=== PATIENT | female | born 1970 | race African-American/Black ===

== ENCOUNTER 2016-11-23 13:59 | Emergency (ER) | payer OTHER ==
[2016-11-23 14:21] VITALS: TEMP 98.2; BMI 53.2
--- NOTE | 2016-11-23 15:13 | PDOC ---
History of Present Illness - General History Source: Patient Exam Limitations: No Limitations - History of Present Illness Initial Comments: 11/23/16 15:29 Patient is a 46 year old female with no significant past medical history who presents to the ED with headaches beginning 2 days ago. Patient reports headache beginning thursday afternoon while on the train en route to her home suddenly. She reports head pain subsided thursday night but returned with the same intensity thursday afternoon. She reports taking Advil pm for pain with minimal relief. She states intermittent episodes of chest pains secondary to headache. Denies SOB, dizziness. Denies nausea, urinary problems. Denies fever, chills. Denies any other symptoms. Allergies: Seasonal allergies Social history: No smoking. No alcohol. No drugs Surgical history: None PMD: Dr. Karlene Gamboa <Ellis Ramos - Last Filed: 11/23/16 15:29> <Chandrakant Delacruz - Last Filed: 11/23/16 18:44> - General Chief Complaint: Blood Pressure Problem Stated Complaint: BLOOD PRESSURE PROBLEM/chest pain Time Seen by Provider: 11/23/16 15:12 Past History <Ellis Ramos - Last Filed: 11/23/16 15:29> - Past Medical History Anemia: No Asthma: No Cancer: No Cardiac Disorders: No CVA: No COPD: No CHF: No Dementia: No Diabetes: Yes GI Disorders: No Disorders: No HTN: Yes Hypercholesterolemia: Yes Liver Disease: No Seizures: No Thyroid Disease: No - Surgical History Orthopedic Surgery: No - Immunization History Immunization Up to Date: Yes - Psycho/Social/Smoking Cessation Hx Anxiety: No Suicidal Ideation: No Smoking History: Never smoked Have you smoked in the past 12 months: No Information on smoking cessation initiated: No Hx Alcohol Use: No Drug/Substance Use Hx: No Substance Use Type: Alcohol Hx Substance Use Treatment: No <Chandrakant Delacruz - Last Filed: 11/23/16 18:44> - Past Medical History Allergies/Adverse Reactions: Allergies Allergy/AdvReac Type Severity Reaction Status Date / Time No Known Drug Allergies Allergy Verified 11/23/16 14:17 Home Medications: Ambulatory Orders Metformin HCl [Glucophage -] 500 mg PO BID 01/09/15 Ramipril [Altace] 5 mg PO DAILY 01/09/15 Atorvastatin Ca [Lipitor] 10 mg PO DAILY 08/19/15 Olmesartan/Hydrochlorothiazide [Benicar Hct 40-12.5 mg Tablet] 1 each PO DAILY 08/19/15 Review of Systems - Review of Systems Able to Perform ROS?: Yes Comments:: 11/23/16 15:29 GENERAL/CONSTITUTIONAL: No fever or chills. No weakness. HEAD, EYES, EARS, NOSE AND THROAT: No change in vision. No ear pain or discharge. No sore throat. CARDIOVASCULAR: +Chest pain. No shortness of breath. RESPIRATORY: No cough, wheezing, or hemoptysis. GASTROINTESTINAL: No nausea, vomiting, diarrhea or constipation. GENITOURINARY: No dysuria, frequency, or change in urination. MUSCULOSKELETAL: No joint or muscle swelling or pain. No neck or back pain. SKIN: No rash NEUROLOGIC: +Headache No vertigo, loss of consciousness, or change in strength/sensation. ENDOCRINE: No increased thirst. No abnormal weight change. HEMATOLOGIC/LYMPHATIC: No anemia, easy bleeding, or history of blood clots. ALLERGIC/IMMUNOLOGIC: No hives or skin allergy. All Other Systems: Reviewed and Negative <Ellis Ramos - Last Filed: 11/23/16 15:29> *Physical Exam - Vital Signs Last Vital Signs Temp Pulse Resp BP Pulse Ox 98.2 F 74 18 140/69 100 11/23/16 14:19 11/23/16 14:19 11/23/16 14:19 11/23/16 14:19 11/23/16 14:19 - Physical Exam Comments: 11/23/16 15:30 GENERAL: Awake, alert, and fully oriented, in no acute distress HEAD:No signs of trauma EYES: PERRLA, EOMI, sclera anicteric, conjunctiva clear ENT: + Front and maxillary sinus tenderness Auricles normal inspection, hearing grossly normal, nares patent, oropharynx clear without exudates. Moist mucosa NECK: Normal ROM, supple, no lymphadenopathy, JVD, or masses LUNGS: Breath sounds equal, clear to auscultation bilaterally. No wheezes, and no crackles HEART: Regular rate and rhythm, normal S1 and S2, no murmurs, rubs or gallops ABDOMEN: Soft, nontender, normoactive bowel sounds. No guarding, no rebound. No masses EXTREMITIES: Normal range of motion, no edema. No clubbing or cyanosis. No cords, erythema, or tenderness NEUROLOGICAL: Cranial nerves II through XII grossly intact. Normal speech, normal gait SKIN: Warm, Dry, normal turgor, no rashes or lesions noted. <Ellis Ramos - Last Filed: 11/23/16 15:29> - Vital Signs Last Vital Signs Temp Pulse Resp BP Pulse Ox 98.2 F 74 18 140/69 100 11/23/16 14:19 11/23/16 14:19 11/23/16 14:19 11/23/16 14:19 11/23/16 14:19 <Chandrakant Delacruz - Last Filed: 11/23/16 18:44> ED Treatment Course - LABORATORY CBC & Chemistry Diagram: 11/23/16 16:00 11/23/16 16:00 <Chandrakant Delacruz - Last Filed: 11/23/16 18:44> *DC/Admit/Observation/Transfer - Attestations Scribe Attestion: 11/23/16 15:31 Documentation prepared by Ellis Ramos, acting as medical lab specialist for Chandrakant Delacruz MD/DO. <Ellis Ramos - Last Filed: 11/23/16 15:29> - Discharge Dispostion Admit: No - Attestations Physician Attestion: 11/23/16 15:13 I, Dr. Chandrakant Delacruz, attest that this document has been prepared under my direction and personally reviewed by me in its entirety. I further attest, that it accurately reflects all work, treatment, procedures and medical decision -making performed by me. <Chandrakant Delacruz - Last Filed: 11/23/16 18:44> Diagnosis at time of Disposition: Labile hypertension Headache Qualifiers: Headache type: unspecified Headache chronicity pattern: unspecified pattern Intractability: not intractable Qualified Code(s): R51 - Headache - Discharge Dispostion Disposition: HOME Condition at time of disposition: Good - Referrals Referrals: Kimberley Gamboa MD [Primary Care Provider] - - Patient Instructions Printed Discharge Instructions: DI for High Blood Pressure, DI for Sinus Headache Additional Instructions: Mrs St- Sorry this is so bothersome and problematic. All of your tests including your CT Scan of your brain and your sinus' are good. Follow up with Dr. Karlene Gamboa sometime this week. Take Tylenol and or Motrin for your headache. Do not take any sinus or cold preparations. Return to us if any problems. Casey- Dr. Chandrakant Delacruz
[2016-11-23] MEDS ORDERED: KETOROLAC TROMETHAMINE 30 MG/1 ML VIAL IVPUSH ONE (15:24)
[2016-11-23] MEDS ORDERED: KETOROLAC TROMETHAMINE 30 MG/1 ML VIAL ONE (16:05)
[2016-11-23 16:15] LABS: BASOPHIL 0.5 % (0-2.0); EOSINOPHIL 5.9 % (0-4.5); MCH 32.1 pg (25.7-33.7); MEAN CELL VOLUME 94.6 fl (80-96); MEAN PLT VOLUME 8.2 fl (7.5-11.1); NEUTROPHILS 65.5 % (42.8-82.8); PLATELET COUNT 241 K/MM3 (134-434); RDW 13.8 % (11.6-15.6); WHITE BLOOD COUNT 6.3 K/mm3 (4.0-10.0)
[2016-11-23 16:24] LABS: URINE APPEARANCE SLCLOUDY; URINE BILIRUBIN NEGATIVE (NEGATIVE); URINE BLOOD NEGATIVE (NEGATIVE); URINE COLOR LTYELLOW; URINE GLUCOSE (UA) NEGATIVE (NEGATIVE); URINE KETONE NEGATIVE (NEGATIVE); URINE LEUK ESTERASE NEGATIVE (NEGATIVE); URINE NITRITE NEGATIVE (NEGATIVE); URINE PROTEIN NEGATIVE (NEGATIVE); URINE UROBILINOGEN NEGATIVE mg/dL (0.2-1.0)
[2016-11-23 16:30] LABS: INR 1.05 (0.82-1.09); PROTHROMBIN TIME (PATIENT) 11.6 SEC (9.98-11.88)
[2016-11-23 16:57] LABS: ALBUMIN 3.8 g/dl (3.4-5.0); ANION GAP 10 (8-16); CALCIUM 9.6 mg/dL (8.5-10.1); CO2 27 mmol/L (21-32); CREATININE 0.7 mg/dL (0.55-1.02); GLUCOSE,RANDOM 114 mg/dL (74-106); SGOT/AST 26 U/L (15-37); SGPT/ALT 34 U/L (12-78)
[2016-11-23 17:00] LABS: ALK PHOS 108 U/L (45-117); BILIRUBIN,TOTAL 0.6 mg/dL (0.2-1.0); CPK 198 IU/L (26-192); TOT PROT 7.1 g/dl (6.4-8.2); TROPONIN I < 0.02 ng/ml (0.00-0.05)
[2016-11-23 17:50] VITALS: BP 125/52; PULSE 63
--- NOTE | 2016-11-24 13:57 | EKG ---
Test Reason : Blood Pressure : / mmHG Vent. Rate : 077 BPM Atrial Rate : 077 BPM P-R Int : 142 ms QRS Dur : 096 ms QT Int : 392 ms P-R-T Axes : -12 032 043 degrees QTc Int : 443 ms NORMAL SINUS RHYTHM NORMAL ECG NO PREVIOUS ECGS AVAILABLE Confirmed by BRYAN MIRZA MD ([id number]) on 11/24/2016 1:57:18 PM Referred By: Confirmed By:BRYAN MIRZA MD
== END 2016-11-23 18:55 | disposition home or self-care (01) ==
LOC: JER 13:59
PROC: 3E0333Z Introduction of Anti-inflammatory into Peripheral Vein, Percutaneous Approach (ICD-10-PCS; principal; 2016-11-23)
DX: I10 Essential (primary) hypertension (principal); E11.9 Type 2 diabetes mellitus without complications; Z79.84 Long term (current) use of oral hypoglycemic drugs; E78.00 Pure hypercholesterolemia, unspecified
CPT/HCPCS: 36415; 70450-TC; 70486-TC; 71010-TC; 80053; 81003; 82553; 84484; 85025; 85610; 93005; 93010; 99284-25

== ENCOUNTER 2017-04-11 14:56 | Emergency (ER) | payer OTHER ==
[2017-04-11 15:14] VITALS: BP 152/74; PULSE 83; TEMP 97.6; BMI 53.2
[2017-04-11] MEDS ORDERED: KETOROLAC TROMETHAMINE 60 MG/2 ML VIAL IM ONE (15:56)
[2017-04-11] MEDS ORDERED: KETOROLAC TROMETHAMINE 60 MG/2 ML VIAL ONE (15:57)
--- NOTE | 2017-04-11 15:57 | PDOC ---
History of Present Illness - General Chief Complaint: Pain, Acute Stated Complaint: RT LEG PAIN Time Seen by Provider: 04/11/17 15:36 History Source: Patient Exam Limitations: No Limitations - History of Present Illness Initial Comments: 04/11/17 15:56 CHIEF COMPLAINT: "Right lateral buttock pain radiating down right leg HISTORY OF PRESENT ILLNESS: Patient is a morbidly obese 46-year-old female, history of [id number] diabetes, hypertension and high cholesterol presents with right lateral buttock and leg pain. No knee pain. Denies any trauma, and has been intermittent for several months. No neurosensory deficits, no bowel or bladder difficulty incontinence or urinary retention, no saddle anesthesia, no footdrop. No history of IVDU or history of cancer. ] REVIEW OF SYSTEMS: GENERAL: Afebrile, denies any weakness RESPIRATORY: No cough, wheezing, or hemoptysis. CARDIAC: No chest pain or shortness of breath MUSCULOSKELETAL: Pain to right lateral lower back. Eating down right lateral leg. No point tenderness. Pain worse on [right than left. ] SKIN : No erythema, no bruising, no deformity. GI/: Denies any abdominal pain, no urinary difficulty, incontinence or urinary retention. RECTAL: Denies any difficulty this A.m. NEUROLOGICAL: Denies any numbness or tingling. No neurosensory deficits. PHYSICAL EXAM: GENERAL: The patient is awake, alert, and fully oriented, in no acute distress. RESPIRATORY: Lungs clear bilaterally, no rhonchi wheezes or crackles CARDIAC: S1-S2 audible, no murmur rub or gallop MUSCULOSKELETAL: Pain to right lateral lower back and buttock, radiating down right lateral leg, no tingling or sensory deficit. Less than 2 second cap refill , +4 popliteal and pedal pulses. GI/: Abdomen soft, nontender, nondistended. No rebound tenderness. No masses palpable. MUSCULOSKELETAL: No spinal point tenderness. Normal reflexive and no deficits to sensation or strength. RECTAL: [Deferred patient with no neurological findings] SKIN: Warm, Dry, normal turgor, no erythema, no edema no bruising. Past History - Past Medical History Allergies/Adverse Reactions: Allergies Allergy/AdvReac Type Severity Reaction Status Date / Time No Known Drug Allergies Allergy Verified 04/11/17 15:09 Home Medications: Ambulatory Orders Metformin HCl [Glucophage -] 500 mg PO BID 11/03/15 Atorvastatin Ca [Lipitor] 10 mg PO DAILY 08/19/15 Olmesartan/Hydrochlorothiazide [Benicar Hct 40-12.5 mg Tablet] 1 each PO DAILY 08/19/15 Naproxen [Naprosyn -] 500 mg PO BID #14 tablet 04/11/17 Anemia: No Asthma: No Cancer: No Cardiac Disorders: No CVA: No COPD: No CHF: No DVT: No Dementia: No Diabetes: Yes GI Disorders: No Disorders: No HTN: Yes Hypercholesterolemia: Yes Liver Disease: No Seizures: No Thyroid Disease: No - Surgical History Orthopedic Surgery: No - Immunization History Immunization Up to Date: Yes - Suicide/Smoking/Psychosocial Hx Smoking History: Never smoked Have you smoked in the past 12 months: No Information on smoking cessation initiated: No Hx Alcohol Use: Yes Drug/Substance Use Hx: No Substance Use Type: Alcohol Hx Substance Use Treatment: No *Physical Exam - Vital Signs Last Vital Signs Temp Pulse Resp BP Pulse Ox 97.6 F 83 16 152/74 100 04/11/17 15:11 04/11/17 15:11 04/11/17 15:11 04/11/17 15:11 04/11/17 15:11 Medical Decision Making - Medical Decision Making 04/11/17 16:20 A/P: Patient with sciatic pain will give Toradol 60 mg IM no neurological deficits . Patient reports relief after Toradol, I have discharged patient home to follow- up with primary care doctor which she says she has an appointment on Thursday and will follow-up. I discussed the physical exam findings, ancillary test results and final diagnoses with the patient. I answered all of the patient's questions. The patient was satisfied with the care received and felt comfortable with the discharge plan and treatment plan. The patient will call to arrange follow-up and will return to the Emergency Department with any new, persistent or worsening symptoms. *DC/Admit/Observation/Transfer Diagnosis at time of Disposition: Sciatic leg pain - Discharge Dispostion Disposition: HOME Condition at time of disposition: Stable Admit: No - Prescriptions Prescriptions: Naproxen [Naprosyn -] 500 mg PO BID #14 tablet - Referrals Referrals: Kimberley Gamboa MD [Primary Care Provider] - Jay Kramer MD [Staff Physician] - - Patient Instructions Printed Discharge Instructions: DI for Back Pain With Sciatica Additional Instructions: 1. Please return to the emergency department with any numbness, tingling, weakness, numbness or tingling to groin or legs, or loss of bowel or bladder function. 2. Use pain medication as ordered. 3. Please is to followup in the office of Dr. Kramer for evaluation within a week if no improvement. 4. Ice or heat 5. Refrain from lifting anything above 10 pounds, until pain resolved. - Post Discharge Activity Forms/Work/School Notes: Back to Work
== END 2017-04-11 17:17 | disposition home or self-care (01) ==
LOC: JERFT 14:56
PROC: 3E0233Z Introduction of Anti-inflammatory into Muscle, Percutaneous Approach (ICD-10-PCS; principal; 2017-04-11)
DX: M54.31 Sciatica, right side (principal); I10 Essential (primary) hypertension; E11.9 Type 2 diabetes mellitus without complications; Z79.84 Long term (current) use of oral hypoglycemic drugs; E78.00 Pure hypercholesterolemia, unspecified
CPT/HCPCS: 99281-25

== ENCOUNTER 2019-08-24 01:25 | Observation (INO) | payer OTHER ==
--- NOTE | 2019-08-24 01:45 | PDOC ---
History of Present Illness - General Stated Complaint: CHEST PAIN Time Seen by Provider: 08/24/19 01:28 History Source: Patient Exam Limitations: No Limitations - History of Present Illness Initial Comments: 49 year old female with PMH HTN, HLD presented to ED for severe back pain that progressed to chest pain. 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 Pt reported she was trying to sleep, and began to feel substernal sharp intermittent chest pain, with radiation to the back. Pt denied fever, chills, cough. Pt reported she had 1 episode of vomiting, nonbloody, prompting her to come to the ED. Pt admitted to daily ETOH use - wine or rum - "who counts". ROS General: denied fever, chills, generalized weakness. HEENT: denied sore throat, rhinorrhea, ear pain. Cardiovascular: admitted to chest pain. denied palpitations, syncope, diaphoresis. Respiratory: denied shortness of breath, cough, sputum production, hemoptysis. Gastrointestinal: admitted to nausea, vomiting. denied abdominal pain, diarrhea, constipation, blood in stool. Genitourinary: denied dysuria, increased urinary frequency, hematuria, urinary incontinence, flank pain. Back: admitted to back pain. Musculoskeletal: denied joint pain, muscle pain, joint swelling. Neurological: denied headache, dizziness, numbness, tingling, weakness. Integumentary: denied rash, laceration, abrasion. Hematologic/Lymphatic: denied bruising or bleeding. PE Constitutional: Well-nourished, Well-developed, appearing stated age. obese. HEENT: head is normocephalic, atraumatic. EOMI. PERRLA. Neck: supple. Full ROM. Cardiovascular: regular heart rhythm. Normal S1 and S2. no murmurs. no pericardial friction rub. Respiratory: clear to auscultation bilaterally. no crackles, rhonchi or wheezing. no stridor. Gastrointestinal: soft, flat, nontender. normal bowel sounds. no rebound, guarding, or masses. Extremities: peripheral pulses intact and equal. no lower extremity pitting edema noted. Neurological: CN 2-12 grossly intact. moves all four extremities. Psych: awake, alert, oriented x3. follows commands. answers questions appropriately. Past History - Medical History Allergies/Adverse Reactions: Allergies Allergy/AdvReac Type Severity Reaction Status Date / Time No Known Drug Allergies Allergy Verified 04/11/17 15:09 Home Medications: Ambulatory Orders metFORMIN HCL [Glucophage -] 500 mg PO BID 01/09/15 Atorvastatin Ca [Lipitor] 10 mg PO DAILY 08/19/15 Olmesartan/Hydrochlorothiazide [Benicar Hct 40-12.5 mg Tablet] 1 each PO DAILY 08/19/15 Naproxen [Naprosyn -] 500 mg PO BID #14 tablet 04/11/17 - Immunization History Immunization Up to Date: Yes - Psycho-Social/Smoking History Smoking History: Never smoked Have you smoked in the past 12 months: No Heart Score/ECG Review - History History: Slightly suspicious - Electrocardiogram EKG: Non specific repolarization disturbance - Age Age: 45-65 - Risk Factors Risk Factors Heart Score: Yes Hx Hypercholesterolemia, Yes Hx Hypertension, Yes Hx Diabetes, Yes Hx Obesity Based on the list above the patient has:: >/=3 risk factors or Hx atherosclerotic disease - Troponin Troponin: </= normal limit - Score Heart Score - Total: 4 ED Treatment Course - LABORATORY CBC & Chemistry Diagram: 08/24/19 02:20 08/24/19 02:20 - RADIOLOGY Radiology Studies Ordered: Category Date Time Status CTA CHEST ABD PEL W/WO CONT [CT] Stat CT Scan 08/24/19 01:43 Ordered CHEST X-RAY PORTABLE* [RAD] Stat Radiology 08/24/19 01:27 Ordered Medical Decision Making - Medical Decision Making 49 year old female with above PMH presented to ED for back pain, which progressed to chest pain associated with nausea/vomiting. Initial Vital Signs Temp Pulse Resp BP Pulse Ox 98.4 F 84 17 123/72 98 08/24/19 01:25 08/24/19 01:25 08/24/19 01:25 08/24/19 01:25 08/24/19 01:25 EKG 0140: rate 79, regular rhythm, normal axis, normal intervals, QTc 474, no acute ST changes. 08/24/19 02:35 Pt vomiting. Medications ordered: zofran 4 mg IV once Concern for aortic dissection, CTA ordered. Will hold ASA for now. 08/24/19 04:02 Laboratory Last Values WBC 3.7 K/mm3 (4.0-10.0) L 08/24/19 02:20 RBC 4.38 M/mm3 (3.60-5.2) 08/24/19 02:20 Hgb 14.2 GM/dL (10.7-15.3) 08/24/19 02:20 Hct 42.8 % (32.4-45.2) 08/24/19 02:20 MCV 97.8 fl (80-96) H 08/24/19 02:20 MCH 32.6 pg (25.7-33.7) 08/24/19 02:20 MCHC 33.3 g/dl (32.0-36.0) 08/24/19 02:20 RDW 13.6 % (11.6-15.6) 08/24/19 02:20 Plt Count 211 K/MM3 (134-434) 08/24/19 02:20 MPV 8.0 fl (7.5-11.1) 08/24/19 02:20 Absolute Neuts (auto) 2.3 K/mm3 (1.5-8.0) 08/24/19 02:20 Neutrophils % 62.0 % (42.8-82.8) 08/24/19 02:20 Lymphocytes % 24.0 % (8-40) 08/24/19 02:20 Monocytes % 8.2 % (3.8-10.2) 08/24/19 02:20 Eosinophils % 5.0 % (0-4.5) H 08/24/19 02:20 Basophils % 0.8 % (0-2.0) 08/24/19 02:20 Nucleated RBC % 0 % (0-0) 08/24/19 02:20 PT with INR 10.40 SEC (9.7-13.0) 08/24/19 02:20 INR 0.88 (0.83-1.09) 08/24/19 02:20 PTT (Actin FS) 31.0 SECONDS (25.2-36.5) 08/24/19 02:20 Sodium 138 mmol/L (136-145) 08/24/19 02:20 Potassium 3.5 mmol/L (3.5-5.1) 08/24/19 02:20 Chloride 100 mmol/L (98-107) 08/24/19 02:20 Carbon Dioxide 26 mmol/L (21-32) 08/24/19 02:20 Anion Gap 12 MMOL/L (8-16) 08/24/19 02:20 BUN 15.6 mg/dL (7-18) 08/24/19 02:20 Creatinine 0.8 mg/dL (0.55-1.3) 08/24/19 02:20 Est GFR (CKD-EPI)AfAm 98.93 08/24/19 02:20 Est GFR (CKD-EPI)NonAf 85.36 08/24/19 02:20 Random Glucose 147 mg/dL (74-106) H 08/24/19 02:20 Calcium 9.5 mg/dL (8.5-10.1) 08/24/19 02:20 Total Bilirubin 0.4 mg/dL (0.2-1) 08/24/19 02:20 AST 24 U/L (15-37) 08/24/19 02:20 ALT 32 U/L (13-61) 08/24/19 02:20 Alkaline Phosphatase 101 U/L (45-117) 08/24/19 02:20 Creatine Kinase 142 U/L (26-192) 08/24/19 02:20 Troponin I < 0.02 ng/ml (0.00-0.05) 08/24/19 02:20 Total Protein 7.0 g/dl (6.4-8.2) 08/24/19 02:20 Albumin 3.7 g/dl (3.4-5.0) 08/24/19 02:20 Lipase 288 U/L (73-393) 08/24/19 02:20 Leukopenia. Elevated MCV -Daily ETOH use No electrolyte abnormalities. No SIVA. No transaminitis. Negative troponin. -Was drawn around 0230 -Repeat to be done at 0530 Lipase wnl. Pt to proceed to CTA. 08/24/19 04:45 Pt was taken to CT, but contrast machine was "too hot" and so they sent her back without doing the scan. They reported they would need 1.5 hours to fix the machine. Pt informed. Will continue to monitor. 08/24/19 06:49 Laboratory Tests 08/24/19 08/24/19 02:20 05:20 Troponin I < 0.02 < 0.02 Repeat troponin undetectable. Pending CTA report. Likely admission for chest pain with HEART score of 4. Discharge - Discharge Information Problems reviewed: Yes Clinical Impression/Diagnosis: Chest pain - Follow up/Referral Referrals: Kimberley Gamboa MD [Primary Care Provider] - - Patient Discharge Instructions - Post Discharge Activity
[2019-08-24] MEDS ORDERED: ACETAMINOPHEN 1000 MG/100 ML VIAL (NON FORMULARY) IVPB ONE (02:03)
--- NOTE | 2019-08-24 02:09 | PDOC ---
Documentation entered by Jeanine Jimenez SCRIBE, acting as scribe for Lou Steward MD. Lou Steward MD: This documentation has been prepared by the Tony whitfield Brenda, SCRIBE, under my direction and personally reviewed by me in its entirety. I confirm that the documentation accurately reflects all work, treatment, procedures, and medical decision making performed by me. Attending Attestation - Resident Resident Name: Consuelo Ervin - ED Attending Attestation I have performed the following: I have examined & evaluated the patient, The case was reviewed & discussed with the resident, I agree w/resident's findings & plan, Exceptions are as noted - HPI HPI: 08/24/19 01:43 49 yo female dev back pain that radiated to her substernal chest ,and she vomited PMH DM.HTN PSH none - Physicial Exam PE: 08/24/19 01:46 obese 49 yo female p/w back pain,substernal chest pain and an episode of vomiting head ncat neck supple lung cta b/l cvs [id number] abdomen protuberant +++midback pain skin warm and dry extremities no pitting edema neuro axox3,ambulatory - Medical Decision Making 08/24/19 01:50 obese 50 yo female with Dm and HTN developed midback pain that radiated to her midchest and she vomited,concern for ACS,dissection plan ekg/troponin/cbc/comp, ct scan chest 08/24/19 02:08 08/24/19 02:09 s/o Dr Cooper Discharge - Discharge Information Problems reviewed: Yes Clinical Impression/Diagnosis: Chest pain Condition: Stable Disposition: HOME - Follow up/Referral - Patient Discharge Instructions - Post Discharge Activity
[2019-08-24] MEDS ORDERED: ACETAMINOPHEN INJECTION 100 ML IVPB ONE (02:34)
[2019-08-24] MEDS ORDERED: ONDANSETRON 4 MG/2 ML VIAL ONE (02:34)
[2019-08-24] MEDS ORDERED: ONDANSETRON 4 MG/2 ML VIAL IVPUSH ONE (02:35)
[2019-08-24 03:05] LABS: BASO % 0.8 % (0-2.0); HEMATOCRIT 42.8 % (32.4-45.2); HEMOGLOBIN 14.2 GM/dL (10.7-15.3); MCH 32.6 pg (25.7-33.7); MCHC 33.3 g/dl (32.0-36.0); MEAN CELL VOLUME 97.8 fl (80-96); MONO % 8.2 % (3.8-10.2); PLATELET COUNT 211 K/MM3 (134-434); RBC 4.38 M/mm3 (3.60-5.2); RDW 13.6 % (11.6-15.6); WHITE BLOOD COUNT 3.7 K/mm3 (4.0-10.0)
[2019-08-24 03:12] LABS: INR 0.88 (0.83-1.09); PROTHROMBIN TIME (PATIENT) 10.4 SEC (9.7-13.0)
[2019-08-24 03:45] LABS: ALBUMIN 3.7 g/dl (3.4-5.0); ALK PHOS 101 U/L (45-117); ANION GAP 12 MMOL/L (8-16); BILIRUBIN,TOTAL 0.4 mg/dL (0.2-1); BLOOD UREA NITROGEN 15.6 mg/dL (7-18); CALCIUM 9.5 mg/dL (8.5-10.1); CHLORIDE 100 mmol/L (98-107); CO2 26 mmol/L (21-32); CREATININE 0.8 mg/dL (0.55-1.3); GLUCOSE,RANDOM 147 mg/dL (74-106); POTASSIUM 3.5 mmol/L (3.5-5.1); SGOT/AST 24 U/L (15-37); SGPT/ALT 32 U/L (13-61); SODIUM 138 mmol/L (136-145)
[2019-08-24] MEDS ORDERED: FAMOTIDINE 20 MG/50 ML IVPB 20 MG/50 ML MG IVPB ONE ×2 (11:01→11:48)
[2019-08-24] MEDS ORDERED: chlordiazePOXIDE HCL 25 MG CAPSULE PO ONE ×2 (11:01→11:06)
--- NOTE | 2019-08-24 11:11 | PDOC ---
*Physical Exam - Vital Signs Last Vital Signs Temp Pulse Resp BP Pulse Ox 98.4 F 85 18 128/74 100 08/24/19 01:25 08/24/19 05:51 08/24/19 05:51 08/24/19 05:51 08/24/19 05:51 ED Treatment Course - LABORATORY CBC & Chemistry Diagram: 08/24/19 02:20 08/24/19 02:20 - ADDITIONAL ORDERS Additional order review: Laboratory Results 08/24/19 08/24/19 08/24/19 07:12 05:20 02:20 PT with INR INR PTT (Actin FS) Sodium Potassium Chloride Carbon Dioxide Anion Gap BUN Creatinine Est GFR (CKD-EPI)AfAm Est GFR (CKD-EPI)NonAf POC Glucometer 119 Random Glucose Calcium Total Bilirubin AST ALT Alkaline Phosphatase Creatine Kinase Troponin I < 0.02 Total Protein Albumin Lipase 288 08/24/19 08/24/19 02:20 02:20 PT with INR 10.40 INR 0.88 PTT (Actin FS) 31.0 Sodium 138 Potassium 3.5 Chloride 100 Carbon Dioxide 26 Anion Gap 12 BUN 15.6 Creatinine 0.8 Est GFR (CKD-EPI)AfAm 98.93 Est GFR (CKD-EPI)NonAf 85.36 POC Glucometer Random Glucose 147 H Calcium 9.5 Total Bilirubin 0.4 AST 24 ALT 32 Alkaline Phosphatase 101 Creatine Kinase 142 Troponin I < 0.02 Total Protein 7.0 Albumin 3.7 Lipase 08/24/19 08/24/19 07:12 02:20 RBC 4.38 MCV 97.8 H MCHC 33.3 RDW 13.6 MPV 8.0 Neutrophils % 62.0 Lymphocytes % 24.0 Monocytes % 8.2 Eosinophils % 5.0 H Basophils % 0.8 POC Glucometer 119 - Medications Given in the ED: ED Medications Discontinued Medications Generic Name Dose Route Start Last Admin Trade Name Freq PRN Reason Stop Dose Admin Acetaminophen 1,000 mg 08/24/19 02:03 08/24/19 02:51 Ofirmev Injection - IVPB 08/24/19 02:04 1,000 mg ONCE ONE Administration Ondansetron HCl 4 mg 08/24/19 02:35 08/24/19 02:51 Zofran Injection IVPUSH 08/24/19 02:36 4 mg ONCE ONE Administration ED Progress Note - Progress Note Progress Note: 08/24/19 11:06 Pt. received on sign out. Initially presented with chest pain and n/v. CTA c/a/p negative for dissection. Patient reports near daily drinking however states if she doesnt drink she has difficulty sleeping but denies h/o withdrawal seizures or significant tremors. Patient currently reporting CP after multiple episodes of vomiting, well appearing, no resp distress, EKG without ST elevations. Will give librium 25mg and pepcid as well as 162mg asa. Spoke with PMD Dr. Palafox and patient to be admitted to tele obs. Discharge - Discharge Information Problems reviewed: Yes Clinical Impression/Diagnosis: Chest pain Condition: Stable - Admission Yes - Follow up/Referral Referrals: Kimberley Gamboa MD [Primary Care Provider] - - Patient Discharge Instructions - Post Discharge Activity
[2019-08-24] MEDS ORDERED: ASPIRIN 81 MG CHEWABLE TABLETS PO ONE (11:12)
[2019-08-24] MEDS ORDERED: ASPIRIN 81 MG CHEWABLE TABLETS ONE ×2 (11:48→11:51)
[2019-08-24] MEDS ORDERED: chlordiazePOXIDE HCL 25 MG CAPSULE ONE (11:48)
--- NOTE | 2019-08-24 11:50 | HP ---
Admitting History and Physical - Primary Care Physician PCP: Hattie Palafox - Admission Chief Complaint: chest pain History of Present Illness: ER history-- - History of Present Illness Initial Comments: 49 year old female with PMH HTN, HLD presented to ED for severe back pain that progressed to chest pain. 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 Pt reported she was trying to sleep, and began to feel substernal sharp intermittent chest pain, with radiation to the back. Pt denied fever, chills, cough. Pt reported she had 1 episode of vomiting, nonbloody, prompting her to come to the ED. Pt admitted to daily ETOH use - wine or rum - "who counts". 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 -- yesterday after she came back from work, she felt back pain which radiated to the center of her chest - lasted till she came to the ER-had vomited yesterday- feelt nauseous at that time Denies fever <Her family were sick recently with one day of fever and vomiting > she is daily drinker-- drinks about 3 glasses of red wine -- was drinking more during COVID In the ER - she received ASA, Librium History Source: Patient Limitations to Obtaining History: No Limitations - Past Medical History Cardiovascular: Yes: HTN, Hyperlipdemia ...LMP: 10/20/12 - Smoking History Smoking history: Never smoked Have you smoked in the past 12 months: No - Alcohol/Substance Use Hx Alcohol Use: Yes Home Medications - Allergies Allergies/Adverse Reactions: Allergies Allergy/AdvReac Type Severity Reaction Status Date / Time No Known Drug Allergies Allergy Verified 04/11/17 15:09 - Home Medications Home Medications: Ambulatory Orders metFORMIN HCL [Glucophage -] 500 mg PO BID 01/09/15 Atorvastatin Ca [Lipitor] 10 mg PO DAILY 08/19/15 Olmesartan/Hydrochlorothiazide [Benicar Hct 40-12.5 mg Tablet] 1 each PO DAILY 08/19/15 Naproxen [Naprosyn -] 500 mg PO BID #14 tablet 04/11/17 Review of Systems - Review of Systems Constitutional: denies: Chills, Fever Cardiovascular: reports: Chest Pain. denies: Palpitations, Shortness of Breath Respiratory: denies: Cough, SOB on Exertion Gastrointestinal: reports: Nausea, Vomiting. denies: Abdominal Pain Physical Examination Vital Signs: Vital Signs Temperature 98.4 F 08/24/19 01:25 Pulse Rate 85 08/24/19 05:51 Respiratory Rate 18 08/24/19 05:51 Blood Pressure 128/74 08/24/19 05:51 O2 Sat by Pulse Oximetry (%) 100 08/24/19 05:51 Constitutional: Yes: No Distress, Calm Cardiovascular: Yes: Regular Rate and Rhythm Respiratory: Yes: CTA Bilaterally Gastrointestinal: Yes: Normal Bowel Sounds, Soft, Abdomen, Obese. No: Tenderness Edema: No ...Motor Strength: WNL Psychiatric: Yes: WNL Labs: CBC, BMP 08/24/19 02:20 08/24/19 02:20 Imaging - Results Chest X-ray: Image Reviewed (clear) Cat Scan: Report Reviewed (no dissection) EKG: Image Reviewed (NSR) Problem List - Problems (1) Alcohol dependence Code(s): F10.20 - ALCOHOL DEPENDENCE, UNCOMPLICATED (2) Chest pain Code(s): R07.9 - CHEST PAIN, UNSPECIFIED (3) Labile hypertension Code(s): I10 - ESSENTIAL (PRIMARY) HYPERTENSION Assessment/Plan PLAN Check cardiac enzymes ordered Echo cardiology eval Check lipid panel start ASA, statins Librium DVT prophylaxis-->Lovenox sc
--- NOTE | 2019-08-24 12:05 | CON.CARD ---
Consult Consult Specialty:: Cardiology - History of Present Illness History of Present Illness: 49 year old female with PMH HTN, HLD presented to ED for severe back pain that progressed to chest pain. 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 Pt reported she was trying to sleep, and began to feel substernal sharp intermittent chest pain, with radiation to the back. Pt denied fever, chills, cough. Pt reported she had 1 episode of vomiting, nonbloody, prompting her to come to the ED. Pt admitted to daily ETOH use - wine or rum - "who counts". - History Source History Provided By: Patient, Medical Record - Past Medical History Cardio/Vascular: Yes: HTN, Hyperlipdemia ...LMP: 10/20/12 - Alcohol/Substance Use Hx Alcohol Use: Yes - Smoking History Smoking history: Never smoked Have you smoked in the past 12 months: No Home Medications - Allergies Allergies/Adverse Reactions: Allergies Allergy/AdvReac Type Severity Reaction Status Date / Time No Known Drug Allergies Allergy Verified 04/11/17 15:09 - Home Medications Home Medications: Ambulatory Orders metFORMIN HCL [Glucophage -] 500 mg PO BID 01/09/15 Atorvastatin Ca [Lipitor] 10 mg PO DAILY 08/19/15 Olmesartan/Hydrochlorothiazide [Benicar Hct 40-12.5 mg Tablet] 1 each PO DAILY 0 08/19/15 Naproxen [Naprosyn -] 500 mg PO BID #14 tablet 04/11/17 Review of Systems - Review of Systems Constitutional: reports: No Symptoms Eyes: reports: No Symptoms HENT: reports: No Symptoms Neck: reports: No Symptoms Cardiovascular: reports: Chest Pain Respiratory: reports: No Symptoms Gastrointestinal: reports: No Symptoms Genitourinary: reports: No Symptoms Breasts: reports: No Symptoms Reported Musculoskeletal: reports: No Symptoms Integumentary: reports: No Symptoms Neurological: reports: No Symptoms Endocrine: reports: No Symptoms Hematology/Lymphatic: reports: No Symptoms Psychiatric: reports: No Symptoms Vital Signs: Vital Signs Temperature 98.4 F 08/24/19 01:25 Pulse Rate 85 08/24/19 05:51 Respiratory Rate 18 08/24/19 05:51 Blood Pressure 128/74 08/24/19 05:51 O2 Sat by Pulse Oximetry (%) 100 08/24/19 05:51 Constitutional: Yes: Well Nourished, No Distress, Calm Eyes: Yes: WNL, Conjunctiva Clear, EOM Intact HENT: Yes: WNL, Atraumatic, Normocephalic Neck: Yes: WNL, Supple, Trachea Midline Respiratory: Yes: WNL, Regular, CTA Bilaterally Gastrointestinal: Yes: WNL, Normal Bowel Sounds Renal/: Yes: WNL Cardiovascular: Yes: WNL, Regular Rate and Rhythm Musculoskeletal: Yes: WNL Extremities: Yes: WNL Integumentary: Yes: WNL Neurological: Yes: WNL, Alert, Oriented ...Motor Strength: WNL Psychiatric: Yes: WNL, Alert, Oriented - Other Data Labs, Other Data: CBC, BMP 08/24/19 02:20 08/24/19 02:20 INR, PTT INR 0.88 (0.83-1.09) 08/24/19 02:20 Troponin, BNP 08/24/19 08/24/19 02:20 05:20 Troponin I < 0.02 < 0.02 Troponin, BNP 08/24/19 08/24/19 02:20 05:20 Troponin I < 0.02 < 0.02 Imaging - Results Chest X-ray: Image Reviewed (wnl) EKG: Image Reviewed (sr wnl) Problem List - Problems (1) Chest pain Code(s): R07.9 - CHEST PAIN, UNSPECIFIED (2) Headache Code(s): R51 - HEADACHE Qualifiers: Headache type: unspecified Headache chronicity pattern: unspecified pattern Intractability: not intractable Qualified Code(s): R51 - Headache (3) Labile hypertension Code(s): I10 - ESSENTIAL (PRIMARY) HYPERTENSION (4) Sciatic leg pain Code(s): M54.30 - SCIATICA, UNSPECIFIED SIDE (5) Trapezius muscle strain Code(s): S46.819A - STRAIN OF MUSC/FASC/TEND AT SHLDR/UP ARM, UNSP ARM, INIT Qualifiers: Encounter type: initial encounter Laterality: left Qualified Code(s): S46.812A - Strain of other muscles, fascia and tendons at shoulder and upper arm level, left arm, initial encounter Assessment/Plan CP sx r/o GA neg HTN HLP Morbid obesity. Plan ECHO MIBI ST keep LDL below 70 dvt plx
--- NOTE | 2019-08-24 12:41 | EKG ---
Test Reason : Blood Pressure : / mmHG Vent. Rate : 079 BPM Atrial Rate : 079 BPM P-R Int : 142 ms QRS Dur : 104 ms QT Int : 414 ms P-R-T Axes : -28 034 037 degrees QTc Int : 474 ms NORMAL SINUS RHYTHM NORMAL ECG WHEN COMPARED WITH ECG OF 23-NOV-2016 14:30, NO SIGNIFICANT CHANGE WAS FOUND Confirmed by MD DEXTER, LESLIE ([id number]) on 08/24/2019 12:40:50 PM Referred By: Confirmed By:LESLIE RENTERIA MD
--- NOTE | 2019-08-24 14:01 | ECHO ---
Name: ROSALES, SOHA Exam:Adult Echocardiogram Study Date: 08/24/2019 12:33 PM Age: 49 yrs Reason For Study: Chest pain Height: 67 in Weight: 298 lb BSA: 2.4 m2 MMode/2D Measurements & Calculations IVSd: 1.2 cm Ao root diam: 2.6 cm LVIDd: 4.0 cm LA dimension: 3.0 cm LVIDs: 2.8 cm LVPWd: 1.4 cm LVPWs: 1.6 cm EDV(Teich): 70.7 ml ESV(Teich): 28.8 ml LVOT diam: 2.1 cm LAV (MOD-bp): 58.0 ml RV S Tony: 16.0 cm/sec Doppler Measurements & Calculations MV E max tony: 56.8 cm/sec Ao V2 max: 148.8 cm/sec MV A max tony: 74.0 cm/sec Ao max P.9 mmHg MV E/A: 0.77 DAVIAN(V,D): 2.7 cm2 MV dec time: 0.14 sec LV V1 max P.4 mmHg PA V2 max: 90.9 cm/sec LV V1 max: 116.0 cm/sec PA max P.7 mmHg Med Peak E' Tony: 6.9 cm/sec Med E/e': 8.2 Lat Peak E' Tony: 9.1 cm/sec Lat E/e': 6.2 Procedure A complete two-dimensional transthoracic echocardiogram was performed (2D, M-mode, Doppler and color flow Doppler). Left Ventricle There is mild concentric left ventricular hypertrophy. Left ventricular systolic function is normal. Ejection Fraction = 55%. Grade I diastolic dysfunction, (abnormal relaxation pattern). Right Ventricle The right ventricle is normal in size and function. Atria Normal left and right atrial size and function. Mitral Valve The mitral valve is normal in structure and function. There is no mitral valve stenosis. There is no mitral regurgitation noted. Tricuspid Valve The tricuspid valve is normal in structure and function. There was insufficient TR detected to calcul ate RV systolic pressure. Aortic Valve The aortic valve is trileaflet. No hemodynamically significant valvular aortic stenosis. Pulmonic Valve The pulmonic valve is normal in structure and function. Great Vessels The aortic root is normal size. Pericardium/Pleura There is no pericardial effusion. Interpretation Summary There is mild concentric left ventricular hypertrophy. Left ventricular systolic function is normal. The right ventricle is normal in size and function. Sujit Hernandez 08/24/2019 02:00 PM
[2019-08-24] MEDS ORDERED: chlordiazePOXIDE HCL 25 MG CAPSULE PO PRN (14:38)
[2019-08-24 18:43] VITALS: BMI 47.1
[2019-08-24] MEDS ORDERED: ATORVASTATIN CA 10 MG TABLET (FP) PO SCH (22:00)
[2019-08-24] MEDS ORDERED: ACETAMINOPHEN 500 MG TABLET (FP) PO ONE (23:10)
[2019-08-25 00:46] LABS: EPI CELLS 5 /uL (0-25.1); HYALINE CASTS 0 /uL (0-3.1); PH,URINE 6.5 (5.0-8.0); URINE APPEARANCE CLEAR; URINE BACTERIA 176 /uL (0-1359); URINE BILIRUBIN NEGATIVE (NEGATIVE); URINE COLOR YELLOW; URINE GLUCOSE (UA) NEGATIVE (NEGATIVE); URINE KETONE NEGATIVE (NEGATIVE); URINE LEUK ESTERASE TRACE (NEGATIVE); URINE NITRITE NEGATIVE (NEGATIVE); URINE PROTEIN NEGATIVE (NEGATIVE); URINE RBC 2 /uL (0-23.9); URINE WBC 34 /uL (0-25.8)
[2019-08-25 06:35] LABS: HEMATOCRIT 42.3 % (32.4-45.2); HEMOGLOBIN 14.4 GM/dL (10.7-15.3); MCH 32.6 pg (25.7-33.7); MCHC 33.9 g/dl (32.0-36.0); MEAN CELL VOLUME 95.9 fl (80-96); MEAN PLT VOLUME 8.1 fl (7.5-11.1); PLATELET COUNT 191 K/MM3 (134-434); RBC 4.41 M/mm3 (3.60-5.2); RDW 13.5 % (11.6-15.6); WHITE BLOOD COUNT 5.7 K/mm3 (4.0-10.0)
[2019-08-25 06:58] LABS: ALBUMIN 3.2 g/dl (3.4-5.0); BILIRUBIN,TOTAL 1.2 mg/dL (0.2-1); BLOOD UREA NITROGEN 11.3 mg/dL (7-18); CALCIUM 8.8 mg/dL (8.5-10.1); CREATININE 0.7 mg/dL (0.55-1.3); POTASSIUM 3.6 mmol/L (3.5-5.1); TOT PROT 6.3 g/dl (6.4-8.2)
[2019-08-25] MEDS ORDERED: ASPIRIN 81 MG CHEWABLE TABLETS PO SCH (10:00)
[2019-08-25] MEDS ORDERED: LOSARTAN POTASSIUM 50 MG TABLET (FP) PO SCH (10:00)
[2019-08-25] MEDS ORDERED: HYDROCHLOROTHIAZIDE 12.5 MG CAPSULE (FP) PO SCH (10:00)
--- NOTE | 2019-08-25 10:17 | PN ---
Progress Note, Physician Chief Complaint: Pt A&Ox3; anxious; no chest pain or dyspnea. History of Present Illness: Ms St is a 49 year old black female with PMH morbid obesity with likely sleep apnea, chronic alcoholism, HTN, HLD, now presented to ED for severe back pain that progressed to chest pain. 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 Pt reported she was trying to sleep, and began to feel substernal sharp intermittent chest pain, with radiation to the back. Pt denied fever, chills, cough. Pt reported she had 1 episode of vomiting, nonbloody, prompting her to come to the ED. Pt admits to daily ETOH use - wine or rum - "who counts". 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 - Current Medication List Current Medications: Active Medications Aspirin (Asa -) 81 mg PO DAILY [facility] Last Admin: 08/25/19 09:39 Dose: 81 mg Documented by: Atorvastatin Calcium (Lipitor -) 10 mg PO HS [facility] Last Admin: 08/24/19 21:10 Dose: Not Given Documented by: Chlordiazepoxide HCl (Librium -) 25 mg PO Q6H PRN PRN Reason: WITHDRAWAL(CONT SUBST) Hydrochlorothiazide (Hctz -) 12.5 mg PO DAILY [facility] Last Admin: 08/25/19 09:00 Dose: Not Given Documented by: Losartan Potassium (Cozaar -) 100 mg PO DAILY [facility] Last Admin: 08/25/19 09:00 Dose: Not Given Documented by: - Objective Vital Signs: Vital Signs Temperature 99.5 F 08/25/19 08:30 Pulse Rate 90 08/25/19 08:30 Respiratory Rate 20 08/25/19 08:30 Blood Pressure 118/72 08/25/19 08:30 O2 Sat by Pulse Oximetry (%) 99 08/25/19 08:40 Constitutional: Yes: Obese Eyes: Yes: WNL HENT: Yes: WNL Neck: Yes: WNL Cardiovascular: Yes: Regular Rate and Rhythm, S1, S2 Respiratory: Yes: WNL Gastrointestinal: Yes: Soft, Abdomen, Obese ...Rectal Exam: Yes: Deferred Genitourinary: No: Anuria Breast(s): Yes: WNL Musculoskeletal: Yes: Back Pain Extremities: Yes: WNL Edema: No Peripheral Pulses WNL: Yes Integumentary: Yes: WNL Neurological: Yes: WNL ...Motor Strength: WNL Psychiatric: Yes: WNL Labs: CBC, BMP 08/25/19 05:50 08/25/19 05:50 INR, PTT INR 0.88 (0.83-1.09) 08/24/19 02:20 Abnormal Lab Results 08/25/19 08/25/19 00:01 05:50 Random Glucose 118 H Total Bilirubin 1.2 H Total Protein 6.3 L Albumin 3.2 L HDL Cholesterol 95 H Urine Urobilinogen 2.0 H - ....Imaging Chest X-ray: Image Reviewed EKG: Image Reviewed Assessment/Plan CP sx r/o [place] neg HTN HLP Morbid obesity. Febrile alcoholism Plan COVID: negative ECHO: normal LVEF; mild LVH. For MIBI Stress today. keep LDL below 70 with statin, diet. HGBA1c. Nutrition consult (pt has lost 40 lbs on her own since 01/2019; wants to see assistant guest services manager). Pt says she quit alcohol for Lent "but cheated a few times"; wants to quit permanently.
--- NOTE | 2019-08-25 12:21 | PN ---
Progress Note (short form) - Note Progress Note: pt at stress test Vital Signs - 24 hr 08/24/19 08/24/19 08/24/19 16:58 17:00 18:00 Temperature 99.3 F 99.3 F Pulse Rate 95 H 95 H Pulse Rate [ 96 H Apical] Respiratory 20 20 Rate Blood Pressure 104/70 104/70 Blood Pressure 109/64 [Left Arm] O2 Sat by Pulse 100 100 Oximetry (%) 08/24/19 08/24/19 08/25/19 21:00 21:20 02:00 Temperature 101.3 F H 99.6 F Pulse Rate 89 96 H Pulse Rate [ Apical] Respiratory 18 18 Rate Blood Pressure 121/63 121/60 Blood Pressure [Left Arm] O2 Sat by Pulse 99 Oximetry (%) 08/25/19 08/25/19 08/25/19 05:56 08:30 08:40 Temperature 99.4 F 99.5 F Pulse Rate 89 90 Pulse Rate [ Apical] Respiratory 19 20 Rate Blood Pressure 118/63 118/72 Blood Pressure [Left Arm] O2 Sat by Pulse 99 99 Oximetry (%) 08/25/19 10:20 Temperature 98.8 F Pulse Rate Pulse Rate [ Apical] Respiratory Rate Blood Pressure Blood Pressure [Left Arm] O2 Sat by Pulse Oximetry (%) Current Medications Generic Name Dose Route Start Last Admin Trade Name Freq PRN Reason Stop Dose Admin Aspirin 81 mg 08/25/19 10:00 08/25/19 09:39 Asa - PO 81 mg DAILY JONATAN Administration Atorvastatin Calcium 10 mg 08/24/19 22:00 08/24/19 21:10 Lipitor - PO Not Given HS JONATAN Chlordiazepoxide HCl 25 mg 08/24/19 14:38 Librium - PO Q6H PRN WITHDRAWAL(CONT SUBST) Hydrochlorothiazide 12.5 mg 08/25/19 10:00 08/25/19 09:00 Hctz - PO Not Given DAILY JONATAN Losartan Potassium 100 mg 08/25/19 10:00 08/25/19 09:00 Cozaar - PO Not Given DAILY JONATAN Laboratory Results - last 24 hr 08/24/19 08/25/19 08/25/19 14:41 00:01 05:50 WBC 5.7 RBC 4.41 Hgb 14.4 Hct 42.3 MCV 95.9 MCH 32.6 MCHC 33.9 RDW 13.5 Plt Count 191 MPV 8.1 Sodium Potassium Chloride Carbon Dioxide Anion Gap BUN Creatinine Est GFR (CKD-EPI)AfAm Est GFR (CKD-EPI)NonAf Random Glucose Calcium Total Bilirubin AST ALT Alkaline Phosphatase Total Protein Albumin Triglycerides Cholesterol Total LDL Cholesterol HDL Cholesterol TSH Free T4 Urine Color Yellow Urine Appearance Clear Urine pH 6.5 Ur Specific [place] 1.014 Urine Protein Negative Urine Glucose (UA) Negative Urine Ketones Negative Urine Blood Negative Urine Nitrite Negative Urine Bilirubin Negative Urine Urobilinogen 2.0 H Ur Leukocyte Esterase Trace Urine WBC (Auto) 34 Urine RBC (Auto) 2 Urine Casts (Auto) 0 U Epithel Cells (Auto) 5 Urine Bacteria (Auto) 176 COVID-19 (MARITO) Not detected 08/25/19 05:50 WBC RBC Hgb Hct MCV MCH MCHC RDW Plt Count MPV Sodium 139 Potassium 3.6 Chloride 101 Carbon Dioxide 29 Anion Gap 8 BUN 11.3 Creatinine 0.7 Est GFR (CKD-EPI)AfAm 116.27 Est GFR (CKD-EPI)NonAf 100.32 Random Glucose 118 H Calcium 8.8 Total Bilirubin 1.2 H AST 17 ALT 24 Alkaline Phosphatase 89 Total Protein 6.3 L Albumin 3.2 L Triglycerides 68 Cholesterol 176 Total LDL Cholesterol 72 HDL Cholesterol 95 H TSH 0.83 Free T4 1.12 Urine Color Urine Appearance Urine pH Ur Specific [place] Urine Protein Urine Glucose (UA) Urine Ketones Urine Blood Urine Nitrite Urine Bilirubin Urine Urobilinogen Ur Leukocyte Esterase Urine WBC (Auto) Urine RBC (Auto) Urine Casts (Auto) U Epithel Cells (Auto) Urine Bacteria (Auto) COVID-19 (MARITO) she spiked a temp last night currently afebrile COVID negative CXR negative UA unremarkable cultures obtained and are pending not on antibiotics at this time will follow Problem List - Problems (1) Fever Code(s): R50.9 - FEVER, UNSPECIFIED (2) Chest pain Code(s): R07.9 - CHEST PAIN, UNSPECIFIED (3) Headache Code(s): R51 - HEADACHE Qualifiers: Headache type: unspecified Headache chronicity pattern: unspecified pattern Intractability: not intractable Qualified Code(s): R51 - Headache
[2019-08-25] MEDS ORDERED: REGADENOSON 0.4 MG/5 ML PRE-FILLED SYRINGE IVPUSH ONE ×2 (13:16→13:30)
[2019-08-25] MEDS ORDERED: ENOXAPARIN NA (PORCINE) 40 MG/0.4 ML DISP.SYRIN SQ SCH (13:30)
--- NOTE | 2019-08-25 16:13 | DS ---
Physical Examination Vital Signs: Vital Signs Temperature 98.3 F 08/25/19 16:07 Pulse Rate 86 08/25/19 14:39 Respiratory Rate 20 08/25/19 14:39 Blood Pressure 121/73 08/25/19 14:39 O2 Sat by Pulse Oximetry (%) 98 08/25/19 14:39 Labs: CBC, BMP 08/25/19 05:50 08/25/19 05:50 Discharge Summary Problems reviewed: Yes Reason For Visit: CHEST PAIN Current Active Problems Alcohol dependence (Acute) Chest pain (Acute) Fever (Acute) Hospital Course: pt had stress test done for chest pain -- negative for ischemia Normal CTA chest-- no dissection Normal echo Cardiac enzymes negative stable for dc home Follow up with cardiology and GI Condition: Stable - Instructions Referrals: Dennis Alvarenga MD [Staff Physician] - 2 Weeks (GI evaluation ) Kimberley Gamboa MD [Primary Care Provider] - - Home Medications Comprehensive Discharge Medication List: Ambulatory Orders metFORMIN HCL [Glucophage -] 500 mg PO BID 01/09/15 Atorvastatin Ca [Lipitor] 10 mg PO DAILY 08/19/15 Olmesartan/Hydrochlorothiazide [Benicar Hct 40-12.5 mg Tablet] 1 each PO DAILY 08/19/15 Naproxen [Naprosyn -] 500 mg PO BID #14 tablet 04/11/17
[2019-08-25 17:45] VITALS: BP 116/72; PULSE 85; TEMP 98.4
== END 2019-08-25 17:53 | disposition home or self-care (01) ==
LOC: JER 01:25 → JERBED 11:11 → J4W 18:13
PROVIDERS: ADMIT Internal Medicine; ATTEND Internal Medicine
PROC: 3E033NZ Introduction of Analgesics, Hypnotics, Sedatives into Peripheral Vein, Percutaneous Approach (ICD-10-PCS; principal; 2019-08-24)
PROC: 3E023GC Introduction of Other Therapeutic Substance into Muscle, Percutaneous Approach (ICD-10-PCS; 2019-08-24)
PROC: 3E033GC Introduction of Other Therapeutic Substance into Peripheral Vein, Percutaneous Approach (ICD-10-PCS; 2019-08-24)
DX: R07.9 Chest pain, unspecified (principal); R51 Headache; I10 Essential (primary) hypertension; M54.30 Sciatica, unspecified side; E78.5 Hyperlipidemia, unspecified; E11.9 Type 2 diabetes mellitus without complications; E66.01 Morbid (severe) obesity due to excess calories; Z68.42 Body mass index [BMI] 45.0-49.9, adult; Z79.84 Long term (current) use of oral hypoglycemic drugs; F10.20 Alcohol dependence, uncomplicated; X58.XXXA Exposure to other specified factors, initial encounter; Y93.89 Activity, other specified; Y92.89 Other specified places as the place of occurrence of the external cause; S46.812A Strain of other muscles, fascia and tendons at shoulder and upper arm level, left arm, initial encounter; Z29.9 Encounter for prophylactic measures, unspecified; M54.10 Radiculopathy, site unspecified
CPT/HCPCS: 36415; 71045-TC-FY; 71275-TC; 74174-TC; 78452-TC; 80053; 80061; 81003; 82550; 82962; 83036; 83690; 83721; 84439; 84443; 84484; 85025; 85027; 85610; 85730; 87040; 87086; 93005; 93010; 93017; 93306-TC; 99285-25; A9502; G0378; J0131; J2785; Q9967; U0003

== ENCOUNTER 2021-02-08 18:59 | Emergency (ER) | payer OTHER ==
[2021-02-08] MEDS ORDERED: KETOROLAC TROMETHAMINE 30 MG/1 ML VIAL IM ONE (20:39)
[2021-02-08 20:46] VITALS: BP 135/77; PULSE 78; TEMP 98.3; BMI 39.1
[2021-02-08] MEDS ORDERED: KETOROLAC TROMETHAMINE 30 MG/1 ML VIAL ONE (20:47)
== END 2021-02-08 21:03 | disposition home or self-care (01) ==
LOC: JERFT 18:59
PROC: 3E023GC Introduction of Other Therapeutic Substance into Muscle, Percutaneous Approach (ICD-10-PCS; principal; 2021-02-08)
DX: M17.11 Unilateral primary osteoarthritis, right knee (principal)
CPT/HCPCS: 73562-TC-RT-FY; 99284-25

== ENCOUNTER 2021-12-04 16:33 | Observation (INO) | payer OTHER ==
[2021-12-04] MEDS ORDERED: MAG HYDROX/AL HYDROX/SIMETH 30 ML UNIT-DOSE CUP PO ONE (17:34)
[2021-12-04] MEDS ORDERED: FAMOTIDINE 20 MG/50 ML IVPB 20 MG/50 ML MG IVPB ONE ×2 (17:34→18:21)
[2021-12-04] MEDS ORDERED: ASPIRIN 81 MG CHEWABLE TABLETS PO ONE (17:42)
[2021-12-04] MEDS ORDERED: chlordiazePOXIDE HCL 10 MG CAPSULE PO ONE (17:43)
[2021-12-04 18:02] LABS: BASO % 0.6 % (0-2.0); HEMATOCRIT 39.9 % (32.4-45.2); HEMOGLOBIN 13.7 GM/dL (10.7-15.3); MCH 33.5 pg (25.7-33.7); MCHC 34.3 g/dl (32.0-36.0); MEAN CELL VOLUME 97.9 fl (80-96); MEAN PLT VOLUME 7.3 fl (7.5-11.1); MONO % 7.5 % (3.8-10.2); NEUT % 71.9 % (42.8-82.8); PLATELET COUNT 200 10^3/uL (134-434); RBC 4.07 M/mm3 (3.60-5.2); RDW 13.6 % (11.6-15.6); WHITE BLOOD COUNT 5.9 K/mm3 (4.0-10.0)
[2021-12-04 18:13] LABS: ACTIVATED PTT 29.3 SECONDS (25.2-36.5); INR 1.04 (0.83-1.09)
[2021-12-04] MEDS ORDERED: chlordiazePOXIDE HCL 25 MG CAPSULE ONE (18:20)
[2021-12-04] MEDS ORDERED: chlordiazePOXIDE HCL 25 MG CAPSULE PO ONE (18:20)
[2021-12-04] MEDS ORDERED: MAG HYDROX/AL HYDROX/SIMETH 30 ML UNIT-DOSE CUP ONE (18:21)
[2021-12-04] MEDS ORDERED: ASPIRIN 81 MG CHEWABLE TABLETS ONE (18:21)
[2021-12-04 18:22] LABS: CALCIUM 9.5 mg/dL (8.5-10.1)
[2021-12-04 18:23] LABS: ALBUMIN 3.6 g/dl (3.4-5.0); BLOOD UREA NITROGEN 14.5 mg/dL (7-18)
[2021-12-04 18:26] LABS: CREATININE 0.9 mg/dL (0.55-1.3)
[2021-12-04 18:27] LABS: BILIRUBIN,TOTAL 0.7 mg/dL (0.2-1); TOT PROT 7.1 g/dl (6.4-8.2)
[2021-12-04 19:57] LABS: N-TERMINAL BNP 459.9 pg/ml (5-125)
[2021-12-04 23:11] VITALS: BMI 49.8
[2021-12-05] MEDS ORDERED: ACETAMINOPHEN 325 MG TABLET (FP) PO ONE (00:41)
[2021-12-05 08:11] LABS: BASO % 0.3 % (0-2.0); HEMATOCRIT 37.8 % (32.4-45.2); HEMOGLOBIN 12.5 GM/dL (10.7-15.3); LYMPH % 28.9 % (8-40); MCH 32.6 pg (25.7-33.7); MCHC 33.1 g/dl (32.0-36.0); MEAN CELL VOLUME 98.3 fl (80-96); MEAN PLT VOLUME 7.9 fl (7.5-11.1); MONO % 7.7 % (3.8-10.2); NEUT % 56.1 % (42.8-82.8); PLATELET COUNT 177 10^3/uL (134-434); RBC 3.85 M/mm3 (3.60-5.2); RDW 13.9 % (11.6-15.6); WHITE BLOOD COUNT 4.3 K/mm3 (4.0-10.0)
[2021-12-05 09:16] VITALS: BP 111/65; PULSE 79; RESP 18; TEMP 98.5
[2021-12-05 09:16] LABS: ALBUMIN 3.1 g/dl (3.4-5.0); CALCIUM 8.7 mg/dL (8.5-10.1)
[2021-12-05 09:17] LABS: BLOOD UREA NITROGEN 14.8 mg/dL (7-18); MAGNESIUM 1.9 mg/dL (1.8-2.4)
[2021-12-05 09:20] LABS: BILIRUBIN,TOTAL 0.8 mg/dL (0.2-1); CREATININE 0.9 mg/dL (0.55-1.3); TOT PROT 6.1 g/dl (6.4-8.2)
[2021-12-05] MEDS ORDERED: LOSARTAN POTASSIUM 50 MG TABLET PO SCH (11:00)
[2021-12-05] MEDS ORDERED: HYDROCHLOROTHIAZIDE 12.5 MG CAPSULE (FP) PO SCH (11:00)
[2021-12-05] MEDS ORDERED: metFORMIN HCL 500 MG TABLET (FP) PO SCH (11:30)
[2021-12-05] MEDS ORDERED: PATIENT'S OWN MEDICATION (NON-FORMULARY) (Olmesartan/Hydrochlorothiazide [Benicar Hct 40-1 PO SCH (11:30)
== END 2021-12-05 15:23 | disposition home or self-care (01) ==
LOC: JER 16:33 → JERBED 17:45 → J4W 22:49
PROVIDERS: ADMIT Internal Medicine; ATTEND Internal Medicine
PROC: 3E033GC Introduction of Other Therapeutic Substance into Peripheral Vein, Percutaneous Approach (ICD-10-PCS; principal; 2021-12-04)
DX: R07.89 Other chest pain (principal); R06.02 Shortness of breath; F10.10 Alcohol abuse, uncomplicated; I10 Essential (primary) hypertension; E78.5 Hyperlipidemia, unspecified; E11.9 Type 2 diabetes mellitus without complications; E66.01 Morbid (severe) obesity due to excess calories; Z68.42 Body mass index [BMI] 45.0-49.9, adult
CPT/HCPCS: 0241U-QW; 36415; 71046-TC-FY; 80053; 80307; 83735; 83880; 84443; 84484; 85025; 85610; 85730; 93005; 93010; 96365; 99285-25; G0378

== ENCOUNTER 2022-08-28 11:49 | Emergency (ER) | payer OTHER ==
[2022-08-28 12:37] VITALS: RESP 20; BMI 50.1
[2022-08-28] MEDS ORDERED: ONDANSETRON 4 MG/2 ML VIAL IVPUSH ONE (12:59)
[2022-08-28] MEDS ORDERED: ACETAMINOPHEN 1000 MG/100 ML BAG IVPB ONE (12:59)
[2022-08-28] MEDS ORDERED: FAMOTIDINE 20 MG/50 ML IVPB 20 MG/50 ML MG IVPB ONE ×2 (12:59→13:12)
[2022-08-28] MEDS ORDERED: MAG HYDROX/AL HYDROX/SIMETH 30 ML UNIT-DOSE CUP PO ONE (12:59)
[2022-08-28] MEDS ORDERED: SODIUM CHLORIDE 0.9% 500 ML INFUS.BAG IV ONE (12:59)
[2022-08-28] MEDS ORDERED: ACETAMINOPHEN INJECTION 100 ML IVPB ONE (13:11)
[2022-08-28] MEDS ORDERED: ONDANSETRON 4 MG/2 ML VIAL ONE (13:12)
[2022-08-28] MEDS ORDERED: MAG HYDROX/AL HYDROX/SIMETH 30 ML UNIT-DOSE CUP ONE (13:12)
[2022-08-28 13:15] LABS: BASO % 0.4 % (0-2.0); EOS % 0.2 % (0-4.5); HEMATOCRIT 39.3 % (32.4-45.2); HEMOGLOBIN 13.5 GM/dL (10.7-15.3); LYMPH % 7.2 % (8-40); MCH 32.9 pg (25.7-33.7); MCHC 34.3 g/dl (32.0-36.0); MEAN CELL VOLUME 95.8 fl (80-96); MEAN PLT VOLUME 7.2 fl (7.5-11.1); MONO % 7.3 % (3.8-10.2); NEUT % 84.9 % (42.8-82.8); PLATELET COUNT 189 10^3/uL (134-434); RBC 4.11 M/mm3 (3.60-5.2); RDW 14.4 % (11.6-15.6); WHITE BLOOD COUNT 8.9 K/mm3 (4.0-10.0)
[2022-08-28 13:24] LABS: INR 1.09 (0.83-1.09); PROTHROMBIN TIME (PATIENT) 12.6 SEC (9.7-13.0)
[2022-08-28 13:43] LABS: POTASSIUM 3.8 mmol/L (3.5-5.1)
[2022-08-28 13:45] LABS: ALBUMIN 3.3 g/dl (3.4-5.0)
[2022-08-28 13:46] LABS: BLOOD UREA NITROGEN 9.9 mg/dL (7-18)
[2022-08-28 13:50] LABS: BILIRUBIN,TOTAL 1.1 mg/dL (0.2-1); TOT PROT 7.1 g/dl (6.4-8.2)
[2022-08-28] MEDS ORDERED: IBUPROFEN 600 MG TABLET (FP) PO ONE ×2 (16:27→16:29)
[2022-08-28 17:25] LABS: EPI CELLS 15 /uL (0-25.1); HYALINE CASTS 0 /uL (0-3.1); URINE APPEARANCE CLEAR; URINE BACTERIA 455 /uL (0-1359); URINE BILIRUBIN NEGATIVE (NEGATIVE); URINE COLOR DK YELLOW; URINE GLUCOSE (UA) 1+ (NEGATIVE); URINE KETONE NEGATIVE (NEGATIVE); URINE LEUK ESTERASE TRACE (NEGATIVE); URINE NITRITE NEGATIVE (NEGATIVE); URINE PROTEIN NEGATIVE (NEGATIVE); URINE RBC 17 /uL (0-23.9); URINE WBC 71 /uL (0-25.8)
[2022-08-28 17:49] VITALS: BP 130/83; PULSE 99; TEMP 98.5
== END 2022-08-28 18:53 | disposition home or self-care (01) ==
LOC: JER 11:49
PROC: 3E033GC Introduction of Other Therapeutic Substance into Peripheral Vein, Percutaneous Approach (ICD-10-PCS; principal; 2022-08-28)
PROC: 3E033NZ Introduction of Analgesics, Hypnotics, Sedatives into Peripheral Vein, Percutaneous Approach (ICD-10-PCS; 2022-08-28)
PROC: 3E033GC Introduction of Other Therapeutic Substance into Peripheral Vein, Percutaneous Approach (ICD-10-PCS; 2022-08-28)
DX: R07.89 Other chest pain (principal); R10.13 Epigastric pain; M54.6 Pain in thoracic spine; R11.2 Nausea with vomiting, unspecified; R61 Generalized hyperhidrosis; Z20.822 Contact with and (suspected) exposure to COVID-19
CPT/HCPCS: 0241U-QW; 36415; 71046-TC-FY; 80053; 81003; 83690; 84484; 85025; 85610; 85730; 87086; 87186; 93005; 93010; 99285-25

== ENCOUNTER → 2023-10-26 | Day surgery (SDC) | payer OTHER | END | disposition home or self-care (01) | LOC: JRADIR 09:35 | PROVIDERS: ATTEND Internal Medicine | PROC: 0G9K3ZX Drainage of Thyroid Gland, Percutaneous Approach, Diagnostic (ICD-10-PCS; principal; 2023-10-26) | DX: E04.1 Nontoxic single thyroid nodule (principal) | CPT/HCPCS: 10005; 76942; 88173; 88305-TC ==

== ENCOUNTER → 2023-12-10 | Day surgery (SDC) | payer OTHER | END | disposition home or self-care (01) | LOC: JRADIR 09:27 | PROVIDERS: ATTEND Internal Medicine | PROC: 0GBG3ZX Excision of Left Thyroid Gland Lobe, Percutaneous Approach, Diagnostic (ICD-10-PCS; principal; 2023-12-10) | DX: E04.1 Nontoxic single thyroid nodule (principal) | CPT/HCPCS: 10005; 76942; 88173; 88305-TC ==